=== PATIENT | female | born 1950 | race Caucasian/White ===

== ENCOUNTER 2017-11-02 18:29 | Emergency (ER) | payer OTHER ==
[~2017-11-02] VITALS: Ht 154.9 cm; Wt 66.3 kg
[2017-11-02 19:22] LABS: HEMATOCRIT 37.5 % (36.0-46.0); HEMOGLOBIN 12.6 G/DL (11.9-15.5); MCHC 33.6 G/DL (30.0-36.0); MCV 92.4 FL (83-99); PLATELET COUNT 194 K/uL (156-360); RBC DIS.WIDTH-CV 13.8 % (11.8-14.6); RBC DIS.WIDTH-SD 47.1 % (39-53); RED BLOOD COUNT 4.06 M/uL (3.80-5.20); WHITE BLOOD COUNT 6.1 K/uL (4.1-10.2)
[2017-11-02 19:30] LABS: CHLORIDE 111 mEq/L (99-109); SODIUM 142 mEq/L (136-147)
[2017-11-02 19:33] LABS: GLUCOSE 94 mg/dL (70-99); TOTAL PROTEIN 6.9 g/dL (6.4-8.3)
[2017-11-02 19:35] LABS: TOTAL BILIRUBIN 0.3 mg/dL (0.0-1.0)
[2017-11-02 19:36] LABS: ALKALINE PHOSPHATASE 72 IU/L (3-129); GFR ESTIMATE (CALCULATED) 59 mL/min/
[2017-11-02 19:37] LABS: UREA NITROGEN (BUN) 16 mg/dL (9-23)
[2017-11-02 19:38] LABS: AST (GOT) 15 IU/L (2-34)
[2017-11-02 19:39] LABS: ALT (GPT) 13 IU/L (3-49)
[2017-11-02 20:23] LABS: APPEARANCE CLEAR ((CLEAR)); BILIRUBIN NEGATIVE; BLOOD NEGATIVE; COLOR STRAW ((YELLOW)); GLUCOSE (STRIP) NEGATIVE; KETONES NEGATIVE; LEUKOCYTES NEGATIVE; NITRITE NEGATIVE; PROTEIN (STRIP) NEGATIVE; SPECIFIC GRAVITY 1.005 (1.000-1.030); UCUL ADDED? NO; UROBILINOGEN 0.2 MG/DL (0.2-1.0)
[2017-11-02] MEDS ORDERED: MOTRIN600 MG PO (20:42)
[2017-11-02] MEDS ORDERED: DELTASONE20 M1 PO (20:42)
[2017-11-02] MEDS ORDERED: PERCOCET 5/31 TABLET PO (20:42)
[2017-11-02] MEDS ORDERED: FLEXERIL10 MG PO (20:42)
[2017-11-02 21:08] VITALS: BP 131/85
== END 2017-11-02 21:09 | disposition home or self-care (01) ==
LOC: EME 18:29
PROVIDERS: Nurse Practitioner Family
DX: M54.41 Lumbago with sciatica, right side (principal); K57.90 Diverticulosis of intestine, part unspecified, without perforation or abscess without bleeding; F17.200 Nicotine dependence, unspecified, uncomplicated
CPT/HCPCS: 74176; 80053; 81003; 85027; 99281; 99284; J1885